=== PATIENT | male | born 1985 | race Two or more races ===

== ENCOUNTER 2020-07-02 14:19 | Outpatient (CLI) | payer OTHER | END 2020-07-02 14:25 | disposition home or self-care (01) | LOC: LAB 14:19 | PROVIDERS: ATTEND Radiology Diagnostic Radiology | DX: R10.33 Periumbilical pain (principal) ==

== ENCOUNTER 2024-06-22 10:18 | Outpatient (CLI) | payer OTHER ==
[2024-06-22 10:48] LABS: URINE APPEARANCE Clear; URINE BILIRRUBIN Negative (NEGATIVE); URINE BLOOD Negative; URINE COLOR Yellow; URINE GLUCOSE Negative (NEGATIVE); URINE KETONE Negative (NEGATIVE); URINE LEUKOCYTE Negative; URINE NITRATE Negative; URINE PROTEIN Negative (NEGATIVE); URINE UROBILINOGEN 0.2 E.U./dl
[2024-06-22 10:52] LABS: URINE BACTERIA 4.8 uL (0.0-1933); URINE WBC 2.3 uL (0.0-23.2)
[2024-06-22 10:58] LABS: HEMATOCRIT 47.3 % (39.0-48.0); HEMOGLOBIN 16.3 g/dL (13-16.00); MEAN CELL VOLUME 82.9 fL (80.0-100.00); MEAN CORPUSCULAR HEMOGLOBIN 28.5 pg (27.00-32.0); MEAN CORPUSCULAR HGB CONC 34.4 g/dl (32.0-36.0); PLATELET COUNT 314 K/uL (150-450); RED CELL DISTRIBUTION WIDTH 13.5 % (11.5-14.5)
[2024-06-22 11:02] LABS: URINE EPITHELIAL CELLS 0.3 uL (0.0-38.8); URINE RBC 1.7 uL (0.0-20.8)
[2024-06-22 11:58] LABS: ALBUMIN 4.2 gm/dL (3.4-5.0); BILIRUBIN TOTAL 0.95 mg/dL (0.3-1.2); CALCIUM 9.8 mg/dL (8.5-10.1); CHOL HDL RATIO 4.3 (0-5.0); CREATININE SERUM 1.21 mg/dL (0.70-1.30); GFR 66.76; GLOBULINA 3.4 G/DL (2.4-3.5); POTASSIUM 4.45 mEq/L (3.5-5.1); T4 TOTAL 10.71 UG/DL (4.5-12.1); TOTAL PROTEIN 7.6 gm/dL (6.4-8.2); TSH 2.86 uIU/mL (0.358-3.74)
[2024-06-22 12:00] LABS: PROSTATIC SPECIFIC ANTIGEN 5.15 NG/ML (0.010-4.00)
== END 2024-06-22 10:20 | disposition home or self-care (01) ==
LOC: LAB 10:18
PROVIDERS: ATTEND Internal Medicine
DX: D64.9 Anemia, unspecified (principal); N39.0 Urinary tract infection, site not specified; E11.69 Type 2 diabetes mellitus with other specified complication; K76.0 Fatty (change of) liver, not elsewhere classified; E11.22 Type 2 diabetes mellitus with diabetic chronic kidney disease; E03.9 Hypothyroidism, unspecified; E78.5 Hyperlipidemia, unspecified; R80.9 Proteinuria, unspecified; E11.9 Type 2 diabetes mellitus without complications; N40.0 Benign prostatic hyperplasia without lower urinary tract symptoms; Z12.5 Encounter for screening for malignant neoplasm of prostate

== ENCOUNTER 2024-06-22 11:25 | Outpatient (CLI) | payer OTHER | END 2024-06-22 11:38 | disposition home or self-care (01) | LOC: RAD 11:25 | PROVIDERS: ATTEND Internal Medicine | DX: R91.1 Solitary pulmonary nodule (principal); M54.50 Low back pain, unspecified ==